=== PATIENT | male | born 1950 | race Two or more races ===

== ENCOUNTER 2024-06-22 23:53 | Inpatient (IN) | payer MEDICARE, OTHER ==
[~2024-06-22] VITALS: Ht 177.8 cm; Wt 69.4 kg
[2024-06-23] VITALS (50 sets, daily range): BP systolic 92–154; BP diastolic 57–141; TEMP 97–97.8; O2SAT 91–100
[2024-06-23 00:43] LABS: BASOPHILS # (AUTO) 0.1 K/uL (0.0-0.2); BASOPHILS % (AUTO) 1.1 % (0.0-2.0); EOSINOPHILS % (AUTO) 0.1 % (0.0-6.0); LYMPHOCYTES # (AUTO) 0.7 K/uL (0.8-4.8); LYMPHOCYTES % (AUTO) 6.1 % (20.0-44.0); MEAN CORPUSCULAR HEMOGLOBIN 30 PG (26.0-33.0); MEAN CORPUSCULAR HGB CONC 31 g/dl (31.0-36.0); MEAN CORPUSCULAR VOLUME 97 fL (80-96); MONOCYTES # (AUTO) 0.3 K/uL (0.1-1.30); MONOCYTES % (AUTO) 3.2 % (2.0-12.0); NEUTROPHILS # (AUTO) 9.9 K/uL (1.8-8.9); NEUTROPHILS % (AUTO) 89.5 % (43.0-81.0); PLATELET COUNT (AUTO) 307 K/uL (150-450); RED BLOOD CELL COUNT(AUTO) 0.99 MIL/uL (4.5-6.0); RED CELL DISTRIBUTION WIDTH 18.4 % (11.5-15.0)
[2024-06-23 00:44] LABS: HEMATOCRIT 10 % (39-51)
[2024-06-23 00:46] LABS: SERUM AMMONIA 18 umol/L (11-32)
[2024-06-23] MEDS: IV NS 0.9% 1,000 ML IV ONE ×2 (00:48→01:43)
[2024-06-23 00:59] LABS: LACTIC ACID 2.5 mmol/L (0.4-2.0)
[2024-06-23 01:00] LABS: APPEARANCE,URINE CLEAR (CLEAR); BILIRUBIN,URINE NEGATIVE (NEGATIVE); BLOOD, URINE NEGATIVE Ery/uL (NEGATIVE); COLOR,URINE YELLOW (YELLOW); KETONES,URINE NEGATIVE (NEGATIVE); LEUKOCYTE ESTERASE ,URINE NEGATIVE (NEGATIVE); NITRITE, URINE NEGATIVE (NEGATIVE); PROTEIN,URINE 1+ mg/dl (NEGATIVE); UGLUCOSE 1+ mg/dL (NEGATIVE); UROBILINOGEN,URINE 0.2 EU/dL (0.2)
[2024-06-23] MEDS ORDERED: PANTOPRAZOLE 40 MG VIAL ONE (01:01)
[2024-06-23 01:05] LABS: CALCIUM, SERUM 8.4 mg/dL (8.5-10.1); CARBON DIOXIDE 23 mmol/L (21-32); CHLORIDE 107 mmol/L (98-107); CREATININE 2.3 mg/dL (0.6-1.3); GLUCOSE 251 mg/dL (74-106); POTASSIUM 4.7 mmol/L (3.5-5.1); SODIUM SERUM 143 mmol/L (136-145)
[2024-06-23] MEDS: PANTOPRAZOLE 40 MG VIAL IV ONE (01:05)
[2024-06-23 01:07] LABS: ADD URINE CULTURE NO; BACTERIA,URINE 1+ /HPF (None Seen); RBC,URINE NONE SEEN /HPF (0-2); SQUAMOUS EPITHELIAL CELL,UR None Seen /HPF (None Seen); WBC,URINE NONE SEEN /HPF (0-3)
[2024-06-23 01:14] LABS: INR 1.41 (0.91-1.10); PROTHROMBIN TIME 14.6 SECS (9.2-11.1)
[2024-06-23 01:18] LABS: ALANINE AMINOTRANSFERASE 30 U/L (12-78); ALBUMIN 1.5 g/dL (3.4-5.0); ALKALINE PHOSPHATASE 55 U/L (46-116); ASPARTATE AMINOTRANSFERASE 20 U/L (15-37); BILIRUBIN,TOTAL 0.3 mg/dL (0.2-1.0); NT-PRO BNP > 25000 pg/mL (0-125); TOTAL PROTEIN, SERUM 5.8 g/dL (6.4-8.2)
[2024-06-23 01:21] LABS: UREA NITROGEN, BLOOD 138 mg/dL (7-18)
[2024-06-23] MEDS ORDERED: PIPERACI/TAZO 3.375GM/D5W 50ML PB IV ONE (01:27)
[2024-06-23] MEDS: PIPERACILLIN /TAZOBACTAM 3.375 G in IV D5W 50 ML IV ONE (01:43)
[2024-06-23 01:59] LABS: ABG BASE EXCESS -5.8 mmol/L (-2.0-3.0); ABG PH 7.359 (7.350-7.450); ABG PO2 87.1 mmHg (83.0-108.0); ABG TOTAL HEMOGLOBIN 2.7 G/dL (13.5-17.5); COHb 0.5 % (0.5-1.5); MetHb 0.3 % (0.0-1.5); O2Hb 94.2 % (94.0-97.0); SITE, ABG LEFT RADIAL
[2024-06-23 02:42] LABS: ACETONE, SERUM NEGATIVE (NEGATIVE)
[2024-06-23 03:05] LABS: ANISOCYTOSIS 1+; EOSINOPHILS % (MANUAL) 1 % (0-4); LYMPHOCYTES % (MANUAL) 6 % (16-48); MONOCYTES % (MANUAL) 2 % (0-11.0); NEUTROPHILS % (MANUAL) 91 (42-76); OVALOCYTES 1+; PLATELET ESTIMATE ADEQUATE
[2024-06-23] MEDS ORDERED: CALC1CAP21 PO (03:50)
[2024-06-23] MEDS ORDERED: CHOL500062 PO (03:50)
[2024-06-23] MEDS ORDERED: CALC500T88 PO (03:50)
[2024-06-23] MEDS ORDERED: CANA100T PO (03:50)
[2024-06-23] MEDS ORDERED: PANT40TA49 PO (03:50)
[2024-06-23] MEDS ORDERED: ASCO500C18 PO (03:50)
[2024-06-23] MEDS ORDERED: FOLI0.4T6 PO (03:50)
[2024-06-23] MEDS ORDERED: CARV6.252 PO (03:50)
[2024-06-23] MEDS ORDERED: VALS40TA4 PO (03:50)
[2024-06-23] MEDS ORDERED: SPIR25TA6 PO (03:50)
[2024-06-23] MEDS ORDERED: ZINC220T4 PO (03:50)
[2024-06-23] MEDS ORDERED: AMIN30LI2 PO (03:50)
[2024-06-23] MEDS ORDERED: TAMS-12 PO (03:50)
[2024-06-23] MEDS ORDERED: MAGN200T5 PO (03:50)
[2024-06-23] MEDS ORDERED: SERT50TA PO (03:50)
[2024-06-23] MEDS ORDERED: ATOR40TA PO (03:50)
[2024-06-23] MEDS ORDERED: FURO40TA5 PO (03:50)
[2024-06-23] MEDS ORDERED: INSU100V39 SQ (03:50)
[2024-06-23] MEDS ORDERED: RIVA10TA PO (03:50)
[2024-06-23] MEDS ORDERED: PREG50CA PO (03:50)
[2024-06-23 04:01] LABS: BILIRUBIN,DIRECT 0.3 mg/dL (0.0-0.2)
[2024-06-23 04:08] LABS: LACTIC ACID REFLEX 4.4 mmol/L (0.4-1.9)
[2024-06-23] MEDS: NOREPINEPHRINE 8 MG in IV D5W 242 ML IV PRN ×2 (04:45→10:09)
[2024-06-23] MEDS ORDERED: NOREPINEPHRINE 8MG/250ML RTU 250 ML IV ONE (04:54)
[2024-06-23] MEDS ORDERED: PANTOPRAZOLE 80 MG in IV NS 0.9% 500 ML IV PRN ×2 (05:00→06:00)
[2024-06-23] MEDS ORDERED: NOREPINEPHRINE 8 MG in IV D5W 242 ML IV PRN ×2 (05:00→08:30)
[2024-06-23] MEDS ORDERED: ACETAMINOPHEN 650 MG/SUPP.RECT RC PRN (06:00)
[2024-06-23] MEDS ORDERED: NOREPINEPHRINE 32 MG in IV NS 0.9% 218 ML IV PRN (06:00)
[2024-06-23] MEDS ORDERED: ONDANSETRON HCL/PF 4 MG/2 ML VIAL IVP PRN (06:00)
[2024-06-23 06:35] LABS: BASOPHILS % (AUTO) 0.3 % (0.0-2.0); EOSINOPHILS % (AUTO) 0.1 % (0.0-6.0); LYMPHOCYTES # (AUTO) 0.6 K/uL (0.8-4.8); LYMPHOCYTES % (AUTO) 6.1 % (20.0-44.0); MEAN CORPUSCULAR HEMOGLOBIN 31 PG (26.0-33.0); MEAN CORPUSCULAR HGB CONC 33 g/dl (31.0-36.0); MEAN CORPUSCULAR VOLUME 93 fL (80-96); MONOCYTES # (AUTO) 0.4 K/uL (0.1-1.30); MONOCYTES % (AUTO) 4.2 % (2.0-12.0); NEUTROPHILS # (AUTO) 8.3 K/uL (1.8-8.9); NEUTROPHILS % (AUTO) 89.3 % (43.0-81.0); PLATELET COUNT (AUTO) 292 K/uL (150-450); RED CELL DISTRIBUTION WIDTH 15.4 % (11.5-15.0); WHITE BLOOD COUNT (AUTO) 9.3 K/uL (4.3-11.0)
[2024-06-23 06:41] LABS: ALANINE AMINOTRANSFERASE 29 U/L (12-78); ALKALINE PHOSPHATASE 58 U/L (46-116); ASPARTATE AMINOTRANSFERASE 23 U/L (15-37); BILIRUBIN,DIRECT 0.3 mg/dL (0.0-0.2); BILIRUBIN,TOTAL 0.6 mg/dL (0.2-1.0); CARBON DIOXIDE 24 mmol/L (21-32); CHLORIDE 108 mmol/L (98-107); CREATININE 2.3 mg/dL (0.6-1.3); GLUCOSE 282 mg/dL (74-106); MAGNESIUM 1.8 mg/dL (1.8-2.4); NT-PRO BNP 22885 pg/mL (0-125); PHOSPHORUS 5.9 mg/dL (2.5-4.9); POTASSIUM 4.6 mmol/L (3.5-5.1); SODIUM SERUM 144 mmol/L (136-145); TOTAL PROTEIN, SERUM 5.6 g/dL (6.4-8.2)
[2024-06-23 06:43] LABS: HEMATOCRIT 16 % (39-51); HEMOGLOBIN 5.2 g/dL (13.5-17.5)
[2024-06-23 06:45] LABS: ALBUMIN 1.4 g/dL (3.4-5.0); UREA NITROGEN, BLOOD 129 mg/dL (7-18)
[2024-06-23] MEDS ORDERED: DEXTROSE 50%-WATER 50 ML DISP.SYRIN IV PRN (08:30)
[2024-06-23] MEDS ORDERED: DICL100G26 TP (08:32)
[2024-06-23] MEDS ORDERED: ALLA266C2 TP (08:32)
[2024-06-23] MEDS ORDERED: SENN-261 PO (08:32)
[2024-06-23] MEDS ORDERED: ACET325T53 PO (08:32)
[2024-06-23] MEDS ORDERED: ACET-2812 PO (08:32)
[2024-06-23] MEDS ORDERED: NUT.237L70 PO (08:32)
[2024-06-23] MEDS ORDERED: LIDO700A30 TP (08:32)
[2024-06-23] MEDS: FUROSEMIDE 20 MG/2 ML VIAL IV SCH (08:52)
[2024-06-23] MEDS: GLUCERNA SHAKE 237 ML CAN PO SCH (09:00)
[2024-06-23] MEDS: PREGABALIN 25 MG CAPSULE PO SCH (09:00)
[2024-06-23] MEDS: Z GUARD REMEDY 4 OZ OINT TP PRN (09:06)
[2024-06-23] MEDS: INSULIN REGULAR, HUMAN 100 UNIT/ML 3 ML VIAL SQ PRN (09:18)
[2024-06-23] MEDS: BLOOD SUGAR DIAGNOSTIC 1 EACH STRIP IN SCH (09:21)
[2024-06-23] MEDS: THERAHONEY GEL 1.5 OZ TUBE TP SCH (09:30)
[2024-06-23] MEDS: PIPERACILLIN /TAZOBACTAM 3.375 G in IV D5W 100 ML IV SCH (10:09)
[2024-06-23] MEDS: PANTOPRAZOLE 40 MG VIAL IV SCH (10:11)
[2024-06-23] MEDS ORDERED: IOHEXOL-350 100 ML VIAL IV ONE (12:36)
[2024-06-23] MEDS ORDERED: IV NS 0.9% 250 ML IV ONE (12:36)
[2024-06-23] MEDS ORDERED: CT SWABBABLE VALVE TRANS SET 1 EA INFUS.SET MC ONE (12:36)
[2024-06-23 12:48] LABS: HEMOGLOBIN 6.4 g/dL (13.5-17.5)
[2024-06-23 12:54] LABS: THYROID STIMULATING HORMONE 0.8 uIU/mL (0.358-3.74)
[2024-06-23] MEDS: CARVEDILOL 6.25 MG TABLET PO SCH (13:23)
[2024-06-23 14:30] LABS: LYMPHOCYTES % (MANUAL) 8 % (16-48); MONOCYTES % (MANUAL) 2 % (0-11.0); NEUTROPHILS % (MANUAL) 90 (42-76)
[2024-06-23 14:31] LABS: PLATELET ESTIMATE ADEQUATE
[2024-06-23 14:32] LABS: ANISOCYTOSIS 1+
[2024-06-23 14:33] LABS: OVALOCYTES 1+
[2024-06-23 14:57] LABS: CREATININE, URINE 21.4 MG/DL (30.0-125.0)
[2024-06-23] MEDS: ATORVASTATIN 40 MG TABLET PO SCH (17:09)
[2024-06-23 18:01] LABS: HEMOGLOBIN 5.8 g/dL (13.5-17.5)
[2024-06-24] VITALS (50 sets, daily range): BP systolic 96–119; BP diastolic 58–73; TEMP 97–99.5; O2SAT 95–100
[2024-06-24 00:13] LABS: HEMOGLOBIN 6.8 g/dL (13.5-17.5)
[2024-06-24 07:33] LABS: CREATINE KINASE, TOTAL 32 U/L (39-308)
[2024-06-24 07:34] LABS: ALANINE AMINOTRANSFERASE 21 U/L (12-78); ALKALINE PHOSPHATASE 44 U/L (46-116); ASPARTATE AMINOTRANSFERASE 15 U/L (15-37); BILIRUBIN,TOTAL 0.8 mg/dL (0.2-1.0); CALCIUM, SERUM 8.3 mg/dL (8.5-10.1); CARBON DIOXIDE 25 mmol/L (21-32); CHLORIDE 113 mmol/L (98-107); CREATININE 2.3 mg/dL (0.6-1.3); GLUCOSE 121 mg/dL (74-106); MAGNESIUM 2.1 mg/dL (1.8-2.4); PHOSPHORUS 5.4 mg/dL (2.5-4.9); POTASSIUM 3.7 mmol/L (3.5-5.1); SODIUM SERUM 146 mmol/L (136-145); TOTAL PROTEIN, SERUM 5.1 g/dL (6.4-8.2)
[2024-06-24 07:39] LABS: BASOPHILS % (AUTO) 0.5 % (0.0-2.0); EOSINOPHILS # (AUTO) 0.1 K/uL (0.0-0.7); EOSINOPHILS % (AUTO) 1.1 % (0.0-6.0); HEMATOCRIT 25 % (39-51); HEMOGLOBIN 8.5 g/dL (13.5-17.5); LYMPHOCYTES # (AUTO) 0.6 K/uL (0.8-4.8); LYMPHOCYTES % (AUTO) 6.5 % (20.0-44.0); MEAN CORPUSCULAR HEMOGLOBIN 30 PG (26.0-33.0); MEAN CORPUSCULAR HGB CONC 35 g/dl (31.0-36.0); MEAN CORPUSCULAR VOLUME 87 fL (80-96); MONOCYTES # (AUTO) 0.8 K/uL (0.1-1.30); MONOCYTES % (AUTO) 8.9 % (2.0-12.0); NEUTROPHILS # (AUTO) 7.5 K/uL (1.8-8.9); PLATELET COUNT (AUTO) 247 K/uL (150-450); RED BLOOD CELL COUNT(AUTO) 2.81 MIL/uL (4.5-6.0); RED CELL DISTRIBUTION WIDTH 17.7 % (11.5-15.0)
[2024-06-24 08:18] LABS: UREA NITROGEN, BLOOD 122 mg/dL (7-18)
[2024-06-24 08:20] LABS: ALBUMIN 1.4 g/dL (3.4-5.0)
[2024-06-24 10:07] LABS: FOLIC ACID > 20.0 ng/mL (>3.0)
[2024-06-24 12:29] LABS: HEMOGLOBIN 7.6 g/dL (13.5-17.5)
[2024-06-24] MEDS: FUROSEMIDE 40 MG TABLET PO SCH (16:50)
[2024-06-24 18:30] LABS: HEMOGLOBIN 8.7 g/dL (13.5-17.5)
[2024-06-25] VITALS: BP 106/66; TEMP 97; O2SAT 99
[2024-06-25 00:10] VITALS: BP 106/66; TEMP 96.9; O2SAT 99
[2024-06-25 00:25] LABS: HEMOGLOBIN 8.2 g/dL (13.5-17.5)
[2024-06-25 04:47] VITALS: BP 110/73; TEMP 97; O2SAT 100
[2024-06-25 07:00] VITALS: BP 113/84; TEMP 94.5; O2SAT 97
[2024-06-25 08:11] LABS: PTH, INTACT 73 pg/mL (15-65)
[2024-06-25 10:49] LABS: BASOPHILS # (AUTO) 0.1 K/uL (0.0-0.2); BASOPHILS % (AUTO) 1.2 % (0.0-2.0); EOSINOPHILS # (AUTO) 0.2 K/uL (0.0-0.7); EOSINOPHILS % (AUTO) 2.8 % (0.0-6.0); HEMATOCRIT 23 % (39-51); LYMPHOCYTES # (AUTO) 0.6 K/uL (0.8-4.8); LYMPHOCYTES % (AUTO) 7.2 % (20.0-44.0); MEAN CORPUSCULAR HEMOGLOBIN 30 PG (26.0-33.0); MEAN CORPUSCULAR HGB CONC 34 g/dl (31.0-36.0); MEAN CORPUSCULAR VOLUME 87 fL (80-96); MONOCYTES # (AUTO) 0.7 K/uL (0.1-1.30); MONOCYTES % (AUTO) 8.3 % (2.0-12.0); NEUTROPHILS % (AUTO) 80.5 % (43.0-81.0); PLATELET COUNT (AUTO) 247 K/uL (150-450); RED BLOOD CELL COUNT(AUTO) 2.69 MIL/uL (4.5-6.0); RED CELL DISTRIBUTION WIDTH 18.6 % (11.5-15.0); WHITE BLOOD COUNT (AUTO) 8.7 K/uL (4.3-11.0)
[2024-06-25] MEDS: BACLOFEN (10 MG) 10 MG TABLET PO PRN (13:43)
[2024-06-25] MEDS ORDERED: MORPHINE SULFATE 8 MG/ML VIAL IV PRN (14:30)
[2024-06-25] MEDS ORDERED: MORPHINE SULFATE INJ 4 MG/ML DISP.SYRIN IV PRN (14:30)
[2024-06-25] MEDS: MORPHINE SULFATE INJ 2 MG/ML DISP.SYRIN IV PRN (14:41)
[2024-06-25 16:00] VITALS: BP 107/68; TEMP 97.3; O2SAT 99
[2024-06-25 21:04] VITALS: BP 121/79; TEMP 95.2; O2SAT 96
[2024-06-26 06:05] VITALS: O2SAT 100
[2024-06-26 07:52] LABS: BASOPHILS # (AUTO) 0.1 K/uL (0.0-0.2); BASOPHILS % (AUTO) 1.1 % (0.0-2.0); EOSINOPHILS # (AUTO) 0.2 K/uL (0.0-0.7); EOSINOPHILS % (AUTO) 3.1 % (0.0-6.0); HEMATOCRIT 23 % (39-51); HEMOGLOBIN 7.7 g/dL (13.5-17.5); LYMPHOCYTES # (AUTO) 0.6 K/uL (0.8-4.8); LYMPHOCYTES % (AUTO) 7.4 % (20.0-44.0); MEAN CORPUSCULAR HEMOGLOBIN 30 PG (26.0-33.0); MEAN CORPUSCULAR HGB CONC 34 g/dl (31.0-36.0); MEAN CORPUSCULAR VOLUME 88 fL (80-96); MONOCYTES # (AUTO) 0.7 K/uL (0.1-1.30); MONOCYTES % (AUTO) 8.8 % (2.0-12.0); NEUTROPHILS # (AUTO) 5.9 K/uL (1.8-8.9); NEUTROPHILS % (AUTO) 79.6 % (43.0-81.0); PLATELET COUNT (AUTO) 252 K/uL (150-450); RED BLOOD CELL COUNT(AUTO) 2.58 MIL/uL (4.5-6.0); WHITE BLOOD COUNT (AUTO) 7.5 K/uL (4.3-11.0)
[2024-06-26 08:02] VITALS: BP 124/84; TEMP 97.4; O2SAT 98
[2024-06-26 08:17] LABS: INR 1.13 (0.91-1.10); PROTHROMBIN TIME 11.9 SECS (9.2-11.1)
[2024-06-26 08:37] LABS: FERRITIN 313 ng/mL (8-388)
[2024-06-26 08:39] LABS: IRON, SERUM 24 ug/dl (50-175); TOTAL IRON BINDING CAPACITY 157 ug/dl (250-450)
[2024-06-26 08:59] LABS: PARTIAL THROMBOPLASTIN TIME 115.8 SEC (24.3-34.3)
[2024-06-26 11:22] LABS: CALCIUM, SERUM 8.7 mg/dL (8.5-10.1); CARBON DIOXIDE 23 mmol/L (21-32); CHLORIDE 112 mmol/L (98-107); CREATININE 2.3 mg/dL (0.6-1.3); GLUCOSE 82 mg/dL (74-106); POTASSIUM 3.3 mmol/L (3.5-5.1); SODIUM SERUM 148 mmol/L (136-145)
[2024-06-26 11:27] LABS: UREA NITROGEN, BLOOD 99 mg/dL (7-18)
[2024-06-26] MEDS: IV D5W 1,000 ML IV ONE (11:55)
[2024-06-26] MEDS: SOD FERRIC GLUC 125 MG in IV NS 0.9% 100 ML IV SCH (15:59)
[2024-06-26 16:04] VITALS: BP 96/54; TEMP 98.1; O2SAT 100
[2024-06-26] MEDS: CELLULOSE,OXIDIZED 1 EACH EACH MC ONE (16:11)
[2024-06-26 20:10] VITALS: BP 126/84; TEMP 94.6; O2SAT 100
[2024-06-26] MEDS: PIPERACILLIN /TAZOBACTAM 3.375 G in IV D5W 100 ML IV SCH (20:13)
[2024-06-27 06:14] LABS: BASOPHILS # (AUTO) 0.1 K/uL (0.0-0.2); EOSINOPHILS # (AUTO) 0.3 K/uL (0.0-0.7); EOSINOPHILS % (AUTO) 4.5 % (0.0-6.0); HEMATOCRIT 23 % (39-51); HEMOGLOBIN 7.7 g/dL (13.5-17.5); LYMPHOCYTES # (AUTO) 0.6 K/uL (0.8-4.8); LYMPHOCYTES % (AUTO) 9.2 % (20.0-44.0); MEAN CORPUSCULAR HEMOGLOBIN 29 PG (26.0-33.0); MEAN CORPUSCULAR HGB CONC 33 g/dl (31.0-36.0); MEAN CORPUSCULAR VOLUME 89 fL (80-96); MONOCYTES # (AUTO) 0.7 K/uL (0.1-1.30); MONOCYTES % (AUTO) 9.9 % (2.0-12.0); NEUTROPHILS # (AUTO) 5.1 K/uL (1.8-8.9); NEUTROPHILS % (AUTO) 75.4 % (43.0-81.0); PLATELET COUNT (AUTO) 210 K/uL (150-450); RED BLOOD CELL COUNT(AUTO) 2.61 MIL/uL (4.5-6.0); RED CELL DISTRIBUTION WIDTH 18.6 % (11.5-15.0); WHITE BLOOD COUNT (AUTO) 6.8 K/uL (4.3-11.0)
[2024-06-27 06:35] LABS: ALANINE AMINOTRANSFERASE 18 U/L (12-78); ALBUMIN 1.6 g/dL (3.4-5.0); ALKALINE PHOSPHATASE 45 U/L (46-116); ASPARTATE AMINOTRANSFERASE 14 U/L (15-37); BILIRUBIN,TOTAL 0.7 mg/dL (0.2-1.0); CALCIUM, SERUM 8.5 mg/dL (8.5-10.1); CARBON DIOXIDE 29 mmol/L (21-32); CHLORIDE 115 mmol/L (98-107); CREATININE 2.3 mg/dL (0.6-1.3); GLUCOSE 115 mg/dL (74-106); MAGNESIUM 2.1 mg/dL (1.8-2.4); PHOSPHORUS 4.2 mg/dL (2.5-4.9); POTASSIUM 3.1 mmol/L (3.5-5.1); SODIUM SERUM 153 mmol/L (136-145); TOTAL PROTEIN, SERUM 5.6 g/dL (6.4-8.2)
[2024-06-27 06:38] LABS: UREA NITROGEN, BLOOD 86 mg/dL (7-18)
[2024-06-27 08:00] VITALS: BP 135/82; TEMP 98.2; O2SAT 99
[2024-06-27] MEDS: MUPIROCIN OINT 2% 22 GM TUBE NS SCH (09:08)
[2024-06-27] MEDS: IV D5W 1,000 ML IV ONE (10:57)
[2024-06-27 11:09] LABS: FREE KAPPA LT CHAINS SERUM 166.2 mg/L (3.3-19.4); FREE LAMBDA LT CHAIN SERUM 215.9 mg/L (5.7-26.3); KAPPA/LAMBDA RATIO SERUM 0.77 (0.26-1.65)
[2024-06-27] MEDS: POTASSIUM CL. PREMIX PERIPHER. 50 ML IV SCH (11:26)
[2024-06-27 15:13] LABS: VITAMIN B1 THIAMINE,WB 85.9 nmol/L (66.5-200.0)
[2024-06-27 16:00] VITALS: BP 125/81; TEMP 98.2; O2SAT 94
[2024-06-27 20:00] VITALS: BP 128/81; TEMP 97.6; O2SAT 100
[2024-06-28 05:59] LABS: BASOPHILS # (AUTO) 0.1 K/uL (0.0-0.2); BASOPHILS % (AUTO) 0.9 % (0.0-2.0); EOSINOPHILS # (AUTO) 0.3 K/uL (0.0-0.7); HEMATOCRIT 24 % (39-51); HEMOGLOBIN 7.8 g/dL (13.5-17.5); LYMPHOCYTES # (AUTO) 0.5 K/uL (0.8-4.8); MEAN CORPUSCULAR HEMOGLOBIN 30 PG (26.0-33.0); MEAN CORPUSCULAR HGB CONC 33 g/dl (31.0-36.0); MEAN CORPUSCULAR VOLUME 89 fL (80-96); MONOCYTES # (AUTO) 0.7 K/uL (0.1-1.30); MONOCYTES % (AUTO) 8.1 % (2.0-12.0); NEUTROPHILS # (AUTO) 6.6 K/uL (1.8-8.9); PLATELET COUNT (AUTO) 197 K/uL (150-450); RED BLOOD CELL COUNT(AUTO) 2.64 MIL/uL (4.5-6.0); RED CELL DISTRIBUTION WIDTH 18.7 % (11.5-15.0); WHITE BLOOD COUNT (AUTO) 8.2 K/uL (4.3-11.0)
[2024-06-28 06:21] LABS: ALANINE AMINOTRANSFERASE 15 U/L (12-78); ALBUMIN 1.6 g/dL (3.4-5.0); ALKALINE PHOSPHATASE 48 U/L (46-116); ASPARTATE AMINOTRANSFERASE 14 U/L (15-37); BILIRUBIN,TOTAL 0.8 mg/dL (0.2-1.0); CALCIUM, SERUM 8.5 mg/dL (8.5-10.1); CARBON DIOXIDE 26 mmol/L (21-32); CHLORIDE 113 mmol/L (98-107); CREATININE 2.2 mg/dL (0.6-1.3); GLUCOSE 132 mg/dL (74-106); PHOSPHORUS 3.2 mg/dL (2.5-4.9); POTASSIUM 3.2 mmol/L (3.5-5.1); SODIUM SERUM 148 mmol/L (136-145); TOTAL PROTEIN, SERUM 5.6 g/dL (6.4-8.2); UREA NITROGEN, BLOOD 72 mg/dL (7-18)
[2024-06-28 08:15] VITALS: BP 132/80; TEMP 97.5; O2SAT 98
[2024-06-28] MEDS: PANTOPRAZOLE 40 MG TABLET.DR PO SCH (08:36)
[2024-06-28] MEDS: POTASSIUM CL. PREMIX PERIPHER. 50 ML IV SCH (09:58)
[2024-06-28] MEDS: IV D5W 1,000 ML IV PRN (12:21)
[2024-06-28 16:03] VITALS: BP 154/65; TEMP 97.4; O2SAT 98
[2024-06-28 20:25] VITALS: BP 126/64; TEMP 94.9; O2SAT 99
[2024-06-28 21:47] VITALS: TEMP 97
[2024-06-29 05:01] VITALS: O2SAT 98
[2024-06-29 06:33] LABS: BASOPHILS # (AUTO) 0.1 K/uL (0.0-0.2); EOSINOPHILS # (AUTO) 0.2 K/uL (0.0-0.7); HEMATOCRIT 25 % (39-51); HEMOGLOBIN 8.3 g/dL (13.5-17.5); LYMPHOCYTES # (AUTO) 0.6 K/uL (0.8-4.8); LYMPHOCYTES % (AUTO) 7.7 % (20.0-44.0); MEAN CORPUSCULAR HEMOGLOBIN 30 PG (26.0-33.0); MEAN CORPUSCULAR HGB CONC 33 g/dl (31.0-36.0); MEAN CORPUSCULAR VOLUME 91 fL (80-96); MONOCYTES # (AUTO) 0.6 K/uL (0.1-1.30); NEUTROPHILS # (AUTO) 5.7 K/uL (1.8-8.9); NEUTROPHILS % (AUTO) 79.3 % (43.0-81.0); PLATELET COUNT (AUTO) 179 K/uL (150-450); RED BLOOD CELL COUNT(AUTO) 2.79 MIL/uL (4.5-6.0); RED CELL DISTRIBUTION WIDTH 18.6 % (11.5-15.0); WHITE BLOOD COUNT (AUTO) 7.2 K/uL (4.3-11.0)
[2024-06-29 06:49] LABS: INR 1.15 (0.91-1.10); PROTHROMBIN TIME 12.1 SECS (9.2-11.1)
[2024-06-29 07:52] LABS: PARTIAL THROMBOPLASTIN TIME 144.9 SEC (24.3-34.3)
[2024-06-29 08:00] VITALS: BP 140/89; TEMP 98.4; O2SAT 96
[2024-06-29 08:19] LABS: ALANINE AMINOTRANSFERASE 12 U/L (12-78); ALBUMIN 1.7 g/dL (3.4-5.0); ALKALINE PHOSPHATASE 54 U/L (46-116); ASPARTATE AMINOTRANSFERASE 12 U/L (15-37); BILIRUBIN,TOTAL 0.8 mg/dL (0.2-1.0); CALCIUM, SERUM 8.5 mg/dL (8.5-10.1); CARBON DIOXIDE 26 mmol/L (21-32); CHLORIDE 114 mmol/L (98-107); CREATININE 2.1 mg/dL (0.6-1.3); GLUCOSE 135 mg/dL (74-106); POTASSIUM 4.1 mmol/L (3.5-5.1); SODIUM SERUM 149 mmol/L (136-145); UREA NITROGEN, BLOOD 69 mg/dL (7-18)
[2024-06-29 11:33] LABS: INR 1.16 (0.91-1.10); PROTHROMBIN TIME 12.2 SECS (9.2-11.1)
[2024-06-29 11:53] LABS: PARTIAL THROMBOPLASTIN TIME 147.7 SEC (24.3-34.3)
[2024-06-29 13:00] LABS: ABG BASE EXCESS 0.5 mmol/L (-2.0-3.0); ABG OXYGEN SATURATION 97.4 % (94.0-98.0); ABG PCO2 40.9 mmHg (35.0-48.0); ABG PH 7.408 (7.350-7.450); ABG PO2 104.9 mmHg (83.0-108.0); ABG TOTAL HEMOGLOBIN 7.9 G/dL (13.5-17.5); COHb 0.7 % (0.5-1.5); MetHb 0.3 % (0.0-1.5); O2Hb 96.4 % (94.0-97.0); SITE, ABG RIGHT RADIAL
[2024-06-29 13:13] LABS: LACTIC ACID 0.5 mmol/L (0.4-2.0)
[2024-06-29] MEDS: IV D5/0.45 NACL 1,000 ML IV PRN (13:33)
[2024-06-29 14:07] LABS: *SPE A/G RATIO 0.6 (0.7-1.7); *SPE ALBUMIN 1.7 g/dL (2.9-4.4); *SPE ALPHA-1-GLOBULIN 0.3 g/dL (0.0-0.4); *SPE ALPHA-2-GLOBULIN 0.6 g/dL (0.4-1.0); *SPE BETA GLOBULIN 0.7 g/dL (0.7-1.3); *SPE M-SPIKE Not Observed g/dL (Not Observed); *SPE PROTEIN TOTAL 4.7 g/dL (6.0-8.5); *SPEGAMMA GLOBULIN 1.4 g/dL (0.4-1.8)
[2024-06-29 15:16] LABS: APPEARANCE,URINE CLEAR (CLEAR); BILIRUBIN,URINE 1+ (NEGATIVE); BLOOD, URINE 3+ Ery/uL (NEGATIVE); COLOR,URINE YELLOW (YELLOW); KETONES,URINE NEGATIVE (NEGATIVE); LEUKOCYTE ESTERASE ,URINE NEGATIVE (NEGATIVE); NITRITE, URINE NEGATIVE (NEGATIVE); PROTEIN,URINE 2+ mg/dl (NEGATIVE); UGLUCOSE TRACE mg/dL (NEGATIVE); UROBILINOGEN,URINE 0.2 EU/dL (0.2)
[2024-06-29 15:18] LABS: ADD URINE CULTURE NO; BACTERIA,URINE Rare /HPF (None Seen); SQUAMOUS EPITHELIAL CELL,UR Rare /HPF (None Seen); WBC,URINE 0-2 /HPF (0-3)
[2024-06-29 16:12] VITALS: BP 128/75; TEMP 97.3; O2SAT 99
[2024-06-29] MEDS: CELLULOSE,OXIDIZED 1 EACH EACH MC ONE (18:06)
[2024-06-29 20:08] VITALS: BP 134/74; TEMP 97.2; O2SAT 96
[2024-06-30] VITALS (23 sets, daily range): BP systolic 0–146; BP diastolic 30–112; TEMP 90–98.2; O2SAT 86–100
[2024-06-30 07:00] LABS: ALANINE AMINOTRANSFERASE 10 U/L (12-78); ALBUMIN 1.5 g/dL (3.4-5.0); ALKALINE PHOSPHATASE 51 U/L (46-116); ASPARTATE AMINOTRANSFERASE 14 U/L (15-37); BILIRUBIN,TOTAL 0.7 mg/dL (0.2-1.0); CALCIUM, SERUM 8.4 mg/dL (8.5-10.1); CARBON DIOXIDE 26 mmol/L (21-32); CHLORIDE 116 mmol/L (98-107); CREATININE 1.9 mg/dL (0.6-1.3); GLUCOSE 104 mg/dL (74-106); POTASSIUM 3.7 mmol/L (3.5-5.1); SODIUM SERUM 152 mmol/L (136-145); TOTAL PROTEIN, SERUM 5.2 g/dL (6.4-8.2); UREA NITROGEN, BLOOD 59 mg/dL (7-18)
[2024-06-30 07:09] LABS: BASOPHILS # (AUTO) 0.1 K/uL (0.0-0.2); EOSINOPHILS # (AUTO) 0.3 K/uL (0.0-0.7); EOSINOPHILS % (AUTO) 4.1 % (0.0-6.0); HEMATOCRIT 21 % (39-51); LYMPHOCYTES # (AUTO) 0.6 K/uL (0.8-4.8); MEAN CORPUSCULAR HEMOGLOBIN 30 PG (26.0-33.0); MEAN CORPUSCULAR HGB CONC 33 g/dl (31.0-36.0); MEAN CORPUSCULAR VOLUME 90 fL (80-96); MONOCYTES # (AUTO) 0.6 K/uL (0.1-1.30); MONOCYTES % (AUTO) 9.7 % (2.0-12.0); NEUTROPHILS # (AUTO) 4.7 K/uL (1.8-8.9); NEUTROPHILS % (AUTO) 75.2 % (43.0-81.0); PLATELET COUNT (AUTO) 139 K/uL (150-450); RED BLOOD CELL COUNT(AUTO) 2.35 MIL/uL (4.5-6.0); RED CELL DISTRIBUTION WIDTH 18.7 % (11.5-15.0); WHITE BLOOD COUNT (AUTO) 6.3 K/uL (4.3-11.0)
[2024-06-30 07:10] LABS: *HGBFRC HEMOGLOBIN A 97.7 % (96.4-98.8); *HGBFRC HEMOGLOBIN A2 2.3 % (1.8-3.2)
[2024-06-30 10:54] LABS: EOSINOPHILS % (MANUAL) 2 % (0-4); LYMPHOCYTES % (MANUAL) 6 % (16-48); MONOCYTES % (MANUAL) 8 % (0-11.0); NEUTROPHILS % (MANUAL) 84 (42-76); PLATELET ESTIMATE DECREASED
[2024-06-30 10:56] LABS: ANISOCYTOSIS 1+; OVALOCYTES 1+
[2024-06-30] MEDS: ENOXAPARIN SODIUM 60 MG/0.6 ML DISP.SYRIN SQ SCH (14:30)
[2024-06-30] MEDS: MIDODRINE HCL (5MG) 5 MG TABLET PO SCH (17:34)
[2024-06-30] MEDS: IV NS 0.9% 500 ML IV ONE (18:19)
[2024-06-30 19:38] LABS: ABG BASE EXCESS -2.6 mmol/L (-2.0-3.0); ABG OXYGEN SATURATION 97.7 % (94.0-98.0); ABG PCO2 24.3 mmHg (35.0-48.0); ABG PH 7.527 (7.350-7.450); ABG PO2 111.4 mmHg (83.0-108.0); COHb 0.9 % (0.5-1.5); MetHb 0.2 % (0.0-1.5); O2Hb 96.6 % (94.0-97.0); SITE, ABG LEFT RADIAL
[2024-06-30 19:44] LABS: BASOPHILS % (AUTO) 0.6 % (0.0-2.0); EOSINOPHILS % (AUTO) 0.3 % (0.0-6.0); LYMPHOCYTES # (AUTO) 0.5 K/uL (0.8-4.8); LYMPHOCYTES % (AUTO) 6.4 % (20.0-44.0); MEAN CORPUSCULAR HEMOGLOBIN 30 PG (26.0-33.0); MEAN CORPUSCULAR HGB CONC 33 g/dl (31.0-36.0); MEAN CORPUSCULAR VOLUME 90 fL (80-96); MONOCYTES # (AUTO) 0.4 K/uL (0.1-1.30); MONOCYTES % (AUTO) 5.3 % (2.0-12.0); NEUTROPHILS # (AUTO) 6.2 K/uL (1.8-8.9); NEUTROPHILS % (AUTO) 87.4 % (43.0-81.0); PLATELET COUNT (AUTO) 101 K/uL (150-450); RED BLOOD CELL COUNT(AUTO) 2.05 MIL/uL (4.5-6.0); RED CELL DISTRIBUTION WIDTH 17.2 % (11.5-15.0); WHITE BLOOD COUNT (AUTO) 7.1 K/uL (4.3-11.0)
[2024-06-30 19:46] LABS: HEMATOCRIT 19 % (39-51); HEMOGLOBIN 6.2 g/dL (13.5-17.5)
[2024-06-30 19:51] LABS: CALCIUM, SERUM 7.7 mg/dL (8.5-10.1); CARBON DIOXIDE 25 mmol/L (21-32); CHLORIDE 116 mmol/L (98-107); CREATININE 2.1 mg/dL (0.6-1.3); POTASSIUM 4.3 mmol/L (3.5-5.1); SODIUM SERUM 150 mmol/L (136-145); UREA NITROGEN, BLOOD 60 mg/dL (7-18)
[2024-06-30 19:57] LABS: ALANINE AMINOTRANSFERASE 8 U/L (12-78); ALKALINE PHOSPHATASE 43 U/L (46-116); ASPARTATE AMINOTRANSFERASE 13 U/L (15-37); BILIRUBIN,TOTAL 1.2 mg/dL (0.2-1.0); TOTAL PROTEIN, SERUM 4.2 g/dL (6.4-8.2)
[2024-06-30] MEDS ORDERED: NOREPINEPHRINE 8 MG in IV D5W 242 ML IV PRN (20:00)
[2024-06-30] MEDS: NOREPINEPHRINE 8 MG in IV D5W 242 ML IV PRN (20:08)
[2024-06-30 20:11] LABS: ALBUMIN 1.1 g/dL (3.4-5.0); GLUCOSE 181 mg/dL (74-106)
[2024-06-30 20:35] LABS: ANISOCYTOSIS 1+; LYMPHOCYTES % (MANUAL) 5 % (16-48); METAMYELOCYTES % 2 % (0-0); MONOCYTES % (MANUAL) 3 % (0-11.0); MYELOCYTES % 2 % (0-0); NEUTROPHILS % (MANUAL) 88 (42-76); PLATELET ESTIMATE DECREASED
[2024-06-30] MEDS ORDERED: EPINEPHRINE (1:10,000) SYRINGE 1 MG/10 ML DISP.SYRIN ONE (22:27)
[2024-06-30] MEDS ORDERED: CALCIUM CHLORIDE 1,000 MG/10 ML DISP.SYRIN IV ONE (23:37)
[2024-07-01 03:08] LABS: METHYLMALONIC ACID 534 nmol/L (0-378)
== END 2024-06-30 23:38 | DRG 377 ==
LOC: ER 23:58 → ICU 06-23 07:45 → TELE 06-24 14:09 → MED 06-25 11:54 → ICU 06-30 19:57
PROVIDERS: ADMIT Nurse Practitioner Family; ATTEND Nurse Practitioner Acute Care
PROC: 302A3N1 Transfusion of Nonautologous Red Blood Cells into Bone Marrow, Percutaneous Approach (ICD-10-PCS; principal; 2024-06-23)
PROC: 02HV33Z Insertion of Infusion Device into Superior Vena Cava, Percutaneous Approach (ICD-10-PCS; 2024-06-23)
PROC: B548ZZA Ultrasonography of Superior Vena Cava, Guidance (ICD-10-PCS; 2024-06-23)
PROC: 02HV33Z Insertion of Infusion Device into Superior Vena Cava, Percutaneous Approach (ICD-10-PCS; 2024-06-29)
PROC: B548ZZA Ultrasonography of Superior Vena Cava, Guidance (ICD-10-PCS; 2024-06-29)
PROC: 0W993ZX Drainage of Right Pleural Cavity, Percutaneous Approach, Diagnostic (ICD-10-PCS; 2024-06-30)
PROC: 5A12012 Performance of Cardiac Output, Single, Manual (ICD-10-PCS; 2024-06-30)
DX: K92.2 Gastrointestinal hemorrhage, unspecified (principal); D65 Disseminated intravascular coagulation [defibrination syndrome]; L89.153 Pressure ulcer of sacral region, stage 3; G93.41 Metabolic encephalopathy; N17.0 Acute kidney failure with tubular necrosis; J96.01 Acute respiratory failure with hypoxia; I50.23 Acute on chronic systolic (congestive) heart failure; E87.20 Acidosis, unspecified; I13.0 Hypertensive heart and chronic kidney disease with heart failure and stage 1 through stage 4 chronic kidney disease, or unspecified chronic kidney disease; E46 Unspecified protein-calorie malnutrition; D62 Acute posthemorrhagic anemia; E87.0 Hyperosmolality and hypernatremia; I69.354 Hemiplegia and hemiparesis following cerebral infarction affecting left non-dominant side; N13.30 Unspecified hydronephrosis; R64 Cachexia; J98.11 Atelectasis; D64.9 Anemia, unspecified; I25.10 Atherosclerotic heart disease of native coronary artery without angina pectoris; I25.5 Ischemic cardiomyopathy; Z95.1 Presence of aortocoronary bypass graft; Z87.11 Personal history of peptic ulcer disease; I48.91 Unspecified atrial fibrillation; N18.9 Chronic kidney disease, unspecified; M89.8X9 Other specified disorders of bone, unspecified site; E86.9 Volume depletion, unspecified; Z79.01 Long term (current) use of anticoagulants; Z79.4 Long term (current) use of insulin; Z79.899 Other long term (current) drug therapy; N40.0 Benign prostatic hyperplasia without lower urinary tract symptoms; K21.9 Gastro-esophageal reflux disease without esophagitis; E78.5 Hyperlipidemia, unspecified; E83.51 Hypocalcemia; E11.22 Type 2 diabetes mellitus with diabetic chronic kidney disease; E11.40 Type 2 diabetes mellitus with diabetic neuropathy, unspecified; E88.09 Other disorders of plasma-protein metabolism, not elsewhere classified; K76.0 Fatty (change of) liver, not elsewhere classified; K82.8 Other specified diseases of gallbladder; L89.620 Pressure ulcer of left heel, unstageable; Z79.84 Long term (current) use of oral hypoglycemic drugs; Z95.0 Presence of cardiac pacemaker; C80.1 Malignant (primary) neoplasm, unspecified; R26.89 Other abnormalities of gait and mobility
CPT/HCPCS: 36415; 36569; 36600; 70450-TC; 70496-TC; 70498-TC; 71045-TC; 71250-TC; 74018; 76700-TC; 76770-TC; 80048-TC; 80053-TC; 80076-TC; 81001; 82010-TC; 82140-TC; 82248-TC; 82378; 82550-TC; 82570-TC; 82607-TC; 82728-TC; 82803-TC; 82962-TC; 83010; 83540-TC; 83605-TC; 83615-TC; 83735-TC; 83880; 83921; 83970; 84100-TC; 84155; 84165; 84300-TC; 84425; 84443-TC; 84484-TC; 85025-TC; 85027-TC; 85045-TC; 85385-TC; 85396; 85610-TC; 85730-TC; 86850-TC; 86880-TC; 87040-TC; 87081-TC; 92526; 92611-TC; 93307-TC; 93970-TC; 93971-TC; 94761-TC; 94762-TC; 94799-TC; A4223; A6403; G0378; J0171; J0282; J1815; J1940; J2270; J2470; J2543; J2916; J3475; J3480; J3490; J7030; J7040; J7050; J7060; J7070; P9016; Q9967